=== PATIENT | male | born 1935 | race Caucasian/White ===

== ENCOUNTER 2016-09-21 05:01 | Emergency (ER) | payer MEDICARE | END 2016-09-21 06:50 | disposition home or self-care (01) | LOC: FER 05:01 | DX: J01.90 Acute sinusitis, unspecified (principal); G47.00 Insomnia, unspecified; I10 Essential (primary) hypertension; Z88.0 Allergy status to penicillin; Z79.899 Other long term (current) drug therapy; Z95.1 Presence of aortocoronary bypass graft; Z95.0 Presence of cardiac pacemaker | CPT/HCPCS: 94640; J1100 ==

== ENCOUNTER 2016-10-20 17:21 | Emergency (ER) | payer MEDICARE ==
[2016-10-20 18:24] LABS: BASOPHIL 0.1 % (0-2); EOSINOPHIL 0.2 % (0-7); HCT 38.8 % (42.0-52.0); HGB 12.8 g/dl (13.2-18.0); LYMPHOCYTE 9.5 % (15-48); MCH 30.6 pg (25.0-31.0); MCV 92.8 fL (78.0-100.0); MONOCYTE 10.5 % (0-12); MPV 10.3 fL (6.0-9.5); NEUTROPHIL 79.7 % (41-80); PLT 225 K/uL (150-400); RBC 4.18 M/uL (4.70-6.00); RDW 13.5 % (11.5-14.0); WBC 12.6 K/uL (4.0-10.5)
[2016-10-20 18:37] LABS: ALBUMIN 4.2 g/dL (3.4-4.8); BILIRUBIN - TOTAL 0.8 mg/dL (0.1-1.0); CKMB 4.05 ng/mL (0.97-4.94); CREATININE 0.9 mg/dL (0.7-1.2); GLOBULIN (CALCULATION) 2.6 g/dL (2.2-4.2); POTASSIUM 3.9 mmol/L (3.5-5.1); TOTAL PROTEIN 6.8 g/dL (6.4-8.3); TROPONIN T 0.032 ng/mL
[2016-10-20 18:42] LABS: LACTIC ACID 1.6 mmol/L (0.5-2.2)
[2016-10-20 19:54] LABS: BILIRUBIN NEGATIVE (NEGATIVE); BLOOD TRACE-INTACT Ery/uL (NEGATIVE); CLARITY CLEAR (CLEAR); COLOR YELLOW (YELLOW); GLUCOSE (U) NORMAL (NORMAL); KETONE (U) NEGATIVE (NEGATIVE); LEUKOCYTES 1+ Leu/uL (NEGATIVE); NITRITE POSITIVE (NEGATIVE); PROTEIN 2+ mg/dL (NEGATIVE); SPECIFIC GRAVITY 1.015 (1.001-1.030); UROBILINOGEN 0.2 mg/dL (0.2-1.0)
[2016-10-20 20:03] LABS: BACTERIA 2+
== END 2016-10-20 20:35 | disposition home or self-care (01) ==
LOC: FER 17:21
PROVIDERS: Emergency Medicine
DX: I11.0 Hypertensive heart disease with heart failure (principal); I50.9 Heart failure, unspecified; N39.0 Urinary tract infection, site not specified; R82.90 Unspecified abnormal findings in urine; R05 Cough; I25.810 Atherosclerosis of coronary artery bypass graft(s) without angina pectoris; Z88.0 Allergy status to penicillin; Z88.1 Allergy status to other antibiotic agents; Z79.51 Long term (current) use of inhaled steroids; Z79.899 Other long term (current) drug therapy; Z95.0 Presence of cardiac pacemaker; Z95.1 Presence of aortocoronary bypass graft
CPT/HCPCS: 36415; 71020; 80053; 81001; 82550; 82553; 83605; 83880; 84484; 85025; 87040; 87804; 87899; 93005; J1940

== ENCOUNTER 2021-12-28 17:57 | Emergency (ER) | payer MEDICARE, OTHER ==
[~2021-12-28 17:57] MED LIST: 8 HOUR650 MG PO; ADVIL200 M1 PO; ALBUTEROL0.5 ML/AMP INH; ALDACTONE25 MG PO; AMIODARONE HCL200 MG PO; BENADRYL ALLERG25 MG PO; BUMEX1 MG PO; CLARITIN10 MG PO; COENZYME Q10100 MG PO; COUMADIN2 MG PO; ISOSORBIDE MONO60 MG PO; LASIX20 MG PO; LASIX40 MG PO; LOSARTAN-HCTZ1 EAC2 PO; OMEPRAZOLE40 MG PO; PHENERGAN25 M1 PO; ROBITUSSIN DM10 ML PO; TAMSULOSIN HCL0.4 MG PO; TESSALON PERLE100 M1 PO; TOPROL XL 50 MG50 MG PO; ULTRAM50 MG PO; UROCIT-K10 MEQ PO; XANAX0.25 MG PO
[2021-12-28 19:29] LABS: BASOPHIL 0.2 % (0-2); EOSINOPHIL 1.2 % (0-7); HGB 12.6 g/dl (13.2-18.0); LYMPHOCYTE 12.6 % (15-48); MCH 31.1 pg (25.0-31.0); MCHC 33.2 g/dL (32.0-36.0); MCV 93.8 fL (78.0-100.0); NEUTROPHIL 74.6 % (41-80); NRBC 0; PLT 208 K/uL (150-400); RBC 4.05 M/uL (4.70-6.00); RDW 13.2 % (11.5-14.0)
[2021-12-28 19:54] LABS: BUN/CREAT RATIO (CALC) 25.7 RATIO; CREATININE 1.36 mg/dL (0.67-1.17); POTASSIUM 4.6 mmol/L (3.5-5.1)
[2021-12-28 20:16] LABS: LACTIC ACID 1.1 mmol/L (0.4-1.9)
[2021-12-28 20:19] LABS: INR 2.71 (0.9-1.2); PROTHROMBIN TIME 27.8 SECONDS (11.8-13.4)
[2021-12-28] MEDS ORDERED: CEPHALEXIN500 M1 PO (22:02)
== END 2021-12-28 22:24 | disposition home or self-care (01) ==
LOC: FER 17:57
PROVIDERS: Nurse Practitioner Family
DX: L03.114 Cellulitis of left upper limb (principal); Z28.310 Unvaccinated for COVID-19; Z88.0 Allergy status to penicillin; Z88.1 Allergy status to other antibiotic agents
CPT/HCPCS: 36415; 80048; 83605; 84145; 85025; 85610; 87040; 93971; J0696